=== PATIENT | male | born 1990 | race Caucasian/White ===

== ENCOUNTER 2016-06-29 09:13 | Emergency (ER) | payer OTHER ==
[2016-06-29 09:25] VITALS: BP 134/81; PULSE 62; RESP 16; TEMP 97.9; O2SAT 98
--- NOTE | 2016-06-29 10:08 | UCPHY ---
H & P Time Seen by Provider: 06/29/16 09:57 Patient Type: Established HPI/ROS: This patient complains of right 3rd toenail that he stubbed a while back and he is not trimmed the toenail since then because of being apprehensive about being slightly loose. He wonders if he needs to be removed or simply trimmed. The patient admits that he has a poor diet that may contribute to poor toenail health due to poor dentition and he reports anxiety that prevents him from going to the dentist. I saw him recently in the clinic for a tooth related complaint. He admits that he was on the way to see the dentist when he became too anxious to follow through. ROS: No drainage from the toe no fevers. Currently no specific dental pain 5 point ROS is otherwise negative Smoking Status: Current every day smoker Physical Exam: Physical Exam Vital signs are normal. General: No acute distress HEENT: Oropharynx: Poor dentition throughout Eyes: Pupils equal and react to light. Extraocular motions are intact. Cardiac: Brisk capillary refill is intact throughout. Skin: No rash or pallor. Extremities: Atraumatic normal except for right 3rd toe Right 3rd toe: No tenderness to the toe the toenail as minimally displaced in a clockwise fashion from the patient's perspective but still well attached in the eponychial region has no associated erythema or fluctuance. The toenails over ground by about 4 mm beyond the edge of the toe. Neuro: Alert and oriented x3 with no sensorimotor deficits. Constitutional: Initial Vital Signs Temperature (C) 36.6 C 06/29/16 09:24 Heart Rate 62 06/29/16 09:24 Respiratory Rate 16 06/29/16 09:24 Blood Pressure 134/81 H 06/29/16 09:24 O2 Sat (%) 98 06/29/16 09:24 O2 Delivery Mode Room Air Allergies/Adverse Reactions: No Known Allergies Allergy (Verified 06/29/16 09:25) Home Medications: Medication Instructions Recorded Diazepam [Valium 5 MG (*)] 5 - 10 mg PO ONCE #2 tab 06/29/16 Ibuprofen 06/29/16 MDM/Departure - MDM ED Course/Re-evaluation: I trimmed the patient's toenail for him. There is no need to remove this toenail. I counseled him regarding this. I encouraged him to improve his diet. I will provide a script for preprocedural Valium for him to proceed to see the dentist as he needs to have his dental issues addressed. - Depart Disposition: Home, Routine, Self-Care Clinical Impression: Toenail deformity, Poor dentition Condition: Good Additional Instructions: Diagnosis: 1. Deformed toenail 2. Poor dentition Plan: Call dental aid to arrange follow-up appointment Take Valium before going in to help with your dentist anxiety. No driving, alcohol or come Valium Trim toenails regularly after the base when the toenails are soft [facility] - [address] [place] [id number] Phone: [phone] Prescriptions: Diazepam [Valium 5 MG (*)] 5 - 10 mg PO ONCE #2 tab Referrals: NONE *PRIMARY CARE P,. [Primary Care Provider] - As per Instructions - PQRS PQRS Measurement: NA
== END 2016-06-29 10:14 | disposition home or self-care (01) ==
LOC: CED 09:13
DX: L60.2 Onychogryphosis (principal); K08.9 Disorder of teeth and supporting structures, unspecified; F17.200 Nicotine dependence, unspecified, uncomplicated
CPT/HCPCS: G0463-PO

== ENCOUNTER 2016-06-29 20:47 | Emergency (ER) | payer OTHER ==
[2016-06-29 21:04] VITALS: BP 146/95; PULSE 68; RESP 14; O2SAT 96
[2016-06-29 21:07] VITALS: TEMP 98.1
--- NOTE | 2016-06-29 21:41 | UCPHY ---
H & P Time Seen by Provider: 06/29/16 21:22 Patient Type: Established HPI/ROS: This patient presents with a chief complaint of dental pain and nasal congestion. This patient was seen here earlier today with similar complaints but also a problem with a toenail and was seen by Dr. Dove. When he left here he went to another urgent care and they prescribed Augmentin and he has had 1 dose. He says that he is having trouble sleeping because of the pain. He denies any fever or constitutional symptoms Smoking Status: Current every day smoker Physical Exam: This patient is alert and appropriate. He appears to be in some discomfort. His teeth are in generally bad repair and the gingiva are slightly swollen. Constitutional: Initial Vital Signs Temperature (C) 36.7 C 06/29/16 21:02 Heart Rate 68 06/29/16 21:02 Respiratory Rate 14 06/29/16 21:02 Blood Pressure 146/95 H 06/29/16 21:02 O2 Sat (%) 96 06/29/16 21:02 O2 Delivery Mode Room Air Allergies/Adverse Reactions: No Known Allergies Allergy (Verified 06/29/16 21:01) Home Medications: Medication Instructions Recorded Augmentin 1000MG ER Tablet (*) 06/29/16 Hydrocodone/APAP 5/325 [[place] 1 each PO Q4-6PRN PRN #8 tab 06/29/16 5/325 (*)] Departure - Departure Disposition: Home, Routine, Self-Care Clinical Impression: Pain, dental, Nasal congestion Condition: Good Instructions: Dental Caries (ED) Additional Instructions: You should see a dentist as soon as possible. Use a nasal decongestant spray such as Afrin Adult Pain & Fever Control: We recommend Acetaminophen (Tylenol) and Ibuprofen (Motrin, Advil) for pain and fever control. When fever is high or pain severe, both drugs can be used at the same time, but at different intervals. Please note the time differences. Your dose is: Acetaminophen [650]mg every 4 to 6 hours ibuprofen [600]mg every [6] hours with food OR naproxen Sodium (Aleve) [440]mg every 12 hours. Note: do not take Acetaminophen with Hydrocodone (Vicodin, Lortab) or Oxycodone (Percocet). These medications also contain Acetaminophen. No more than 3000 mg of Acetaminophen should be taken in 24 hours (for an adult) . The maximal dose of ibuprofen that it is safe in a 24-hour period is 2400 mg. You may take 400 mg every 4 hours, 600 mg every 6 hours or 800 mg every 8 hours safely. Prescriptions: Hydrocodone/APAP 5/325 [[place] 5/325 (*)] 1 each PO Q4-6PRN PRN #8 tab PRN Reason: pain - PQRS PQRS Measurement: Not applicable
[2016-06-29] MEDS ORDERED: HYDROCOD/APAP 5/325 PREPACK#6 BTL TAKEHOME ONE (21:42)
== END 2016-06-29 21:48 | disposition home or self-care (01) ==
LOC: CED 20:47
DX: K08.89 Other specified disorders of teeth and supporting structures (principal); R09.81 Nasal congestion; F17.200 Nicotine dependence, unspecified, uncomplicated
CPT/HCPCS: 99214-PO; G0463-PO

== ENCOUNTER 2017-01-08 12:23 | Emergency (ER) | payer OTHER | END 2017-01-08 12:29 | disposition left against medical advice (07) | LOC: CED 12:23 | DX: Z53.21 Procedure and treatment not carried out due to patient leaving prior to being seen by health care provider (principal) ==